=== PATIENT | male | born 1965 | race Caucasian/White ===

== ENCOUNTER 2017-01-13 17:45 | Inpatient (IN) | payer OTHER ==
[~2017-01-13] VITALS: Ht 182.9 cm; Wt 89.5 kg
--- NOTE | ~2017-01-13 | HP ---
PATIENT'S NAME: KENDELL LEMOS [facility] AGE: 51 Y [address] ROOM: [address] [address] LOCATION: [facility] [place] ADMIT DATE: 01/13/2017 History & Physical DISCHARGE DATE: FAMILY PHYSICIAN: Juliana Barker MD ATTENDING PHYSICIAN: VELMA AGUILAR DATE OF SERVICE: REFERRING PHYSICIAN: Juliana Barker MD in [place]. CHIEF COMPLAINT: Abdominal pain. REVIEW OF RECORD: Kendell is a pleasant 51-year-old gentleman sent out by Dr. Barker in [place] for admission to the hospital with the diagnosis of possibly developing small bowel obstruction and abdominal pain. The patient states that he has not been feeling well for couple of days. He has had bowel movements which are normal and he has had flatus. He felt his abdomen was getting more tender, and he presented to Dr. Barker. There was a report of white count elevated at 17,000. The CT scan suggested dilated small bowel with what would sound like there is a transition point in the pelvis, indicating a developing small bowel obstruction. He was admitted to the Hospitalist Service. An NG placed. This morning, the patient is afebrile. His laboratory data is normal. His white count is normal. He said he feels better. He is having lots of flatus and he had a bowel movement. He denies any nausea and the pain is much less. He has had no prior abdominal operations. He has a recent history of diverticulitis with abscess status post medical management. Apparently, he had a followup colonoscopy and diverticulosis that was normal per the patient report. The CT scan did not show any evidence of active diverticulitis or abscess. I reviewed with Dr. Cabrera, radiologist at [facility] and he concurs that he has a diffuse small bowel dilation pattern without any transition point and there is no evidence of decompressed small bowel distally. It looks like an ileus and we also noted to have a lot of stool throughout the colon without decompression. The patient says he has never had a small bowel obstruction before. He does not have any history of inguinal hernias. PAST MEDICAL HISTORY: Illnesses are: 1. Rheumatoid arthritis. 2. Chronic narcotic use. 3. Diabetes mellitus. 4. Hypertension. 5. History of diverticulitis. PATIENT'S NAME: KENDELL LEMOS [facility] AGE: 51 Y [address] ROOM: [place] [address] LOCATION: [facility] [place] ADMIT DATE: 01/13/2017 History & Physical DISCHARGE DATE: FAMILY PHYSICIAN: Juliana Barker MD ATTENDING PHYSICIAN: VELMA AGUILAR PAST SURGICAL HISTORY: Operations are colonoscopy. SOCIAL HISTORY: See HPI. MEDICATIONS: See HPI. REVIEW OF SYSTEMS: He denies any fevers. Denies any chills. Denies any change in his vision or hearing. He says he is thirsty. Denies any shortness of breath or chest pain. No dysuria or hematuria or pneumaturia. He denies any newly swollen joints, but he has changes of rheumatoid arthritis. PHYSICAL EXAMINATION: GENERAL: He is a pleasant, 51-year-old gentleman with an NG in place. HEENT: His sclerae are nonicteric. Mucous membranes are dry. NECK: Supple. There is no adenopathy. LUNGS: Clear. HEART: Normal sinus rhythm. ABDOMEN: Flat, minimally distended. Minimal pain with 4 quadrant palpation. No localization. No evidence of abdominal wall hernias or inguinal hernias. EXTREMITIES: He has 2/2 femoral and posterior tibial pulses. No peripheral edema. IMPRESSION: Abdominal pain with obstipation, likely small bowel ileus. The CT findings and clinical exam and history are not consistent with the small-bowel obstruction. I spoke with MAIRA Matos. Would recommend discontinuing the NG this afternoon if he continues to have flatus and bowel movements. I would like to get his bowels a little more regulated and decompressed. Start him on Colace due to his chronic narcotic use. I explained this to the patient, he agrees. We will follow up. Thank you very much for allowing me to participate in his care. BILLY MCCRAY MD WTS/modl PATIENT'S NAME: KENDELL LEMOS [facility] AGE: 51 Y [address] ROOM: [place] [address] LOCATION: [facility] [place] ADMIT DATE: 01/13/2017 History & Physical DISCHARGE DATE: FAMILY PHYSICIAN: Juliana Barker MD ATTENDING PHYSICIAN: VELMA AGUILAR /[id number] D: [id number] T: 610 HISTORY & PHYSICAL
--- NOTE | ~2017-01-13 | HP ---
PATIENT'S NAME: MASOUD LEMOS [facility] AGE: 51 Y [address] ROOM: [address] [address] LOCATION: [place] ADMIT DATE: 01/13/2017 History & Physical DISCHARGE DATE: FAMILY PHYSICIAN: PHYSICIAN, UNKNOWN ATTENDING PHYSICIAN: VELMA AGUILAR DATE OF SERVICE: CHIEF COMPLAINT: Abdominal pain. HISTORY OF PRESENT ILLNESS: A 51-year-old gentleman with a past medical history of rheumatoid arthritis, on chronic prednisone therapy, as well as diabetes, had a previous right-sided hernia repair in the past presented to the outside facility with abdominal pain, which was initially located in the epigastrium and now travelled to the rest of the abdomen, crampy in nature, 9/10 at its worst, comes in waves, progressive in nature, right now 6/10, associated with some nausea, but no vomiting. He did endorse having a feeling of being cold, but no chills, shakes, or fever reported. He had bowel movement this morning and have been passing some gas. On further questioning, he denied any chest pain, any shortness of breath, any palpitations, cough, sputum production, headache, trouble swallowing, any extremity pain, or swelling in the legs. REVIEW OF SYSTEMS: All other systems reviewed were negative except those mentioned in the HPI. ALLERGIES: NO KNOWN DRUG ALLERGIES. PAST MEDICAL HISTORY: Hypertension, essential, rheumatoid arthritis, hyperlipidemia, and type 2 diabetes. MEDICATIONS: Being reconciled right now. FAMILY HISTORY: Significant for pacemaker in father and type 2 diabetes in mother. SOCIAL HISTORY: Acute tobacco in the past, quit that many years ago. No alcohol or other drug abuse reported. PHYSICAL EXAMINATION: PATIENT'S NAME: MASOUD LEMOS [facility] AGE: 51 Y [address] ROOM: [address] [address] LOCATION: [place] ADMIT DATE: 01/13/2017 History & Physical DISCHARGE DATE: FAMILY PHYSICIAN: PHYSICIAN, UNKNOWN ATTENDING PHYSICIAN: VELMA AGUILAR VITAL SIGNS: Blood pressure 153/78, afebrile, 72, and 16. GENERAL: In mild acute distress due to abdominal pain. Alert and oriented x3. HEENT: Head: Atraumatic, normocephalic. Eyes: Nonicteric. No pallor. Oropharynx: Dry mucous membranes. CARDIOVASCULAR: S1, S2. No murmurs, gallops, or rubs. LUNGS: Clear to auscultation bilaterally. ABDOMEN: Soft. Tender in all quadrants. Some rigidity noted. Tenderness, worse in the right lower quadrant. Bowel sounds are present. EXTREMITIES: No clubbing, cyanosis, or edema. PSYCH: Normal affect, mood, and speech. NEUROLOGIC: Cranial nerves 2 through 12 intact. No motor or sensory deficit noted. MUSCULOSKELETAL: No muscle tenderness or joint swelling noted. SKIN: No blemishes or rashes noted. ENDOCRINE: No thyromegaly or myxedema noted. LABORATORY DATA: Lab work from outside facility showed a white count of 17. Rest of the BMP was unremarkable. Potassium was 3.5. CT scan of the abdomen was done at an outside facility, which did show a developing small bowel obstruction with a transition point in the pelvis. ASSESSMENT: 1. Developing small-bowel obstruction. 2. Type 2 diabetes. 3. Hypertension. 4. Rheumatoid arthritis. 5. Hyperlipidemia. PLAN: We are going to admit this patient to inpatient. NG suction with a low intermittent suction will be started. IV fluids, pain control, as well as nausea control will be provided. Given high white count and some rigidity noted in the abdomen, we will start him on ertapenem as well. Surgical consultation has already been obtained.. We will monitor his course in the hospital and defer the surgical plan to the Surgical Team. Hypertension, we will control with p.r.n. labetalol at this point as long as he is n.p.o. I will hold the leflunomide and prednisone at this point. If any signs of hypotension develops, we will give stress-dosed steroids. No chemical DVT prophylaxis, just the SCDs. The patient is full code. Rest of the recommendations will depend on his progress in the hospital. PATIENT'S NAME: MASOUD LEMOS [facility] AGE: 51 Y [address] ROOM: [address] [address] LOCATION: [place] ADMIT DATE: 01/13/2017 History & Physical DISCHARGE DATE: FAMILY PHYSICIAN: PHYSICIAN, UNKNOWN ATTENDING PHYSICIAN: VELMA AGUILAR MD LYNN SONG/modl /[id number] D: [id number] T: 213 HISTORY & PHYSICAL
--- NOTE | ~2017-01-13 | DS ---
PATIENT'S NAME: KENDELL LEMOS [facility] AGE: 51 Y [address] ROOM: [place] [address] LOCATION: [facility] [place] ADMIT DATE: 01/13/2017 Discharge Summary DISCHARGE DATE: 01/17/2017 FAMILY PHYSICIAN: Juliana Barker MD ATTENDING PHYSICIAN: Deirdre Palacios REASON FOR ADMISSION: Abdominal pain. PRINCIPAL DIAGNOSIS: Ileus versus partial small bowel obstruction. SECONDARY DIAGNOSES: 1. History of inguinal hernia repair. 2. Essential hypertension. 3. Tobacco dependence. 4. Type 2 diabetes. 5. Rheumatoid arthritis. 6. Chronic opioid dependence. PROCEDURES DURING STAY: None. CONSULTANTS DURING STAY: General Surgery. LABS AND PENDING TESTS AT THE TIME OF DISCHARGE: None. HOSPITAL COURSE: Kendell is a very pleasant 51-year-old gentleman sent for admission to the hospital with a possible developing small bowel obstruction and abdominal pain after he notes he had not been feeling well for a couple of days with associated increasing abdominal tenderness and elevated white count to 17. CT scan did suggest dilated small bowel with a possible transition point in the pelvis, though this was not definitive. The patient was admitted with supportive cares including IV fluids, pain control, NG tube for decompression, and a surgical consultation. Shortly after admission, the patient was passing flatus and did note a single bowel movement the morning following admission, however. There were no further bowel movements the remainder of the duration of his stay. He was placed on ertapenem initially given concern for leukocytosis which had rapidly resolved and no other evidence of infection, this was discontinued just prior to discharge. The patient remained afebrile without other concerns during stay. NG tube was removed two days prior to discharge, and the patient was advanced to initially clears and subsequently full liquid diet. As mentioned, no bowel movement was noted in three days prior to discharge; however, symptomatically, the patient had shown improvement and had been able to maintain adequate oral intake in the absence of IV fluids. Due to these reasons, a lengthy discussion was held with the patient regarding monitoring in the hospital with slow advancement of diet until bowel movements resume versus return home with the same plan. The PATIENT'S NAME: KENDELL LEMOS [facility] AGE: 51 Y [address] ROOM: [place] [id number] LOCATION: [facility] [place] ADMIT DATE: 01/13/2017 Discharge Summary DISCHARGE DATE: 01/17/2017 FAMILY PHYSICIAN: Juliana Barker MD ATTENDING PHYSICIAN: Deirdre Palacios patient did choose to return home at this time and will monitor his diet and advance slowly with followup with his PCP later this week. It is uncertain what the etiology of ileus versus partial small bowel obstruction is as he has had a hernia repair, but also the patient does note he had a colon perforation in the past with likely subsequent scarring. With this along with his chronic narcotic use, put him at risk for adhesions as well as ileus secondary to pain medications. We will send the patient with few tablets for pain control as needed, though this was sparingly needed at the time of discharge. The patient was started on Colace for constipation in the setting of narcotic use as well as given a suppository twice during stay without significant results later on in stay. PHYSICAL EXAMINATION AT DISCHARGE: VITAL SIGNS: Last vital signs on date of discharge; temp 97.4, pulse 71, respirations 18, blood pressure 122/81, saturating 99% on room air. GENERAL: No acute distress. Sitting up in chair. Ambulating independently around the room. CARDIOVASCULAR: Regular rate and rhythm. No murmurs, rubs, or gallops appreciated. LUNGS: Clear to auscultation bilaterally with normal effort on room air. ABDOMEN: Soft, nontender. Minimally distended. No masses appreciated. With normoactive bowel sounds. EXTREMITIES: Without edema. LABORATORY DATA: Most pertinent labs prior to discharge notable for a normal BMP and white count of 9. Procalcitonin also noted to be less than 0.05 during the stay. CONDITION: The patient was deemed to be in stable condition for discharge home. DISPOSITION: Discharge the patient, to include instructions to maintain a full liquid diet and only to advance quite slowly, this may be a several day process up to a week or two. We will have him follow up with his PCP within the next 3 to 5 days. TIME SPENT: Time spent on the date of discharge including direct patient care and coordination of discharge activities was 35 minutes. MD RENAN CHACON/anahi PATIENT'S NAME: KENDELL LEMOS [facility] AGE: 51 Y [address] ROOM: [place] [address] LOCATION: [facility] [place] ADMIT DATE: 01/13/2017 Discharge Summary DISCHARGE DATE: 01/17/2017 FAMILY PHYSICIAN: Juliana Barker MD ATTENDING PHYSICIAN: Deirdre Palacios /[id number] d: 01/18/17 0245 t: 01/18/17 0858, DISCHARGE SUMMARY
--- NOTE | 2017-01-13 20:23 | NUR ---
Patient admitted from [place] for small bowel obstruction. Stated he has felt "bad" the last 2-3 days with decreased appetite and increased back pain. Since this morning he started having constant cramping below the ribs that started moving down to his abdomen with increasing spasms. Nausea with no emesis. Had a normal bowel movement this morning. Chills. Patient has no allergies. Multiple medical history which includes DMII, diverticulitis, HTN, high cholesterol, migraines, chronic pain to multiple joints, osteoarthritis, and others. States he has had his pneumonia vaccine within the last 5 years, not sure on exact year. Pneumatics on
[2017-01-13] MEDS ORDERED: NORVASC10 MG PO (20:33)
[2017-01-13] MEDS ORDERED: ARAVA20 MG PO (20:33)
[2017-01-13] MEDS ORDERED: FLEXERIL10 MG PO (20:34)
[2017-01-13] MEDS ORDERED: LIPITOR40 MG PO (20:34)
[2017-01-13] MEDS ORDERED: VASOTEC20 MG PO (20:35)
[2017-01-13] MEDS ORDERED: PLAQUENIL200 MG PO (20:36)
[2017-01-13] MEDS ORDERED: HYSINGLA ER60 MG PO (20:38)
[2017-01-13] MEDS ORDERED: JARDIANCE10 MG PO (20:38)
[2017-01-13] MEDS ORDERED: GLUCOPHAGE1000 MG PO (20:39)
[2017-01-13] MEDS ORDERED: PREVACID30 M1 PO (20:39)
[2017-01-13] MEDS ORDERED: DELTASONE5 MG PO (20:40)
[2017-01-13] MEDS ORDERED: TRICOR145 MG PO (20:41)
[2017-01-13] MEDS ORDERED: ULTRAM50 MG PO (20:41)
[2017-01-13] MEDS ORDERED: ATARAX10 MG PO (20:45)
[2017-01-13] MEDS ORDERED: KOMBIGLYZE XR1 EAC1 PO (20:46)
--- NOTE | 2017-01-14 03:56 | NUR ---
Pt. arrived to floor at 1950 from ambulance for abdominal pain - small bowel obstruction. Pt. alert and oriented. VSS - hypertensive at times. RA. IV to R) hand - fluids started. NG inserted in R) nostril with low intermittant suction. Hold all PO meds. IV antibx. Pneumatics. KPad to stomach for cramping. Walking in the halls helps too. D/c Morphine as it did not help. Dilaudid now 0.2mg every 1 hour PRN. NPO with ice chips. 1 assist. Bed alarm is on. Zofran given around [address] Blanca to see Pt. in AM for consult and possible surgery. Cooperative and pleasant with cares.
[2017-01-14 06:03] LABS: BASOPHIL # 0.1 K/uL (0.0-0.2); BASOPHIL % 0.6 %; EOSINOPHIL # 0.4 K/uL (0.0-0.5); EOSINOPHIL % 4.2 %; HEMATOCRIT 39.6 % (37.0-53.0); IMMATURE GRANULOCYTE % 0.3 %; LYMPHOCYTE # 2.1 K/uL (0.8-4.0); LYMPHOCYTE % 22.9 %; MCH 28.1 pg (27.0-34.0); MCHC 32.8 gm/dL (32.0-36.5); MCV 85.5 fl (83.0-98.0); MONOCYTE # 0.9 K/uL (0.0-1.0); MONOCYTE % 9.8 %; MPV 10.8 fl (9.4-12.4); NEUTROPHIL # (ANC) 5.6 K/uL (1.4-9.0); NEUTROPHIL % 62.2 %; NRBC % 0 /100WBC (0-0.00); PLATELET COUNT 298 K/uL (150-450); RDW-CV 15.1 % (11.9-14.6)
[2017-01-14 06:04] LABS: RBC 4.63 M/uL (4.00-6.00)
[2017-01-14 06:21] LABS: ALBUMIN 2.9 gm/dL (3.5-5.0); ALK PHOS 86 IU/L (33-138); ALT 22 IU/L (12-78); ANION GAP 10.9 (10.0-19.0); AST 20 IU/L (10-40); BLOOD UREA NITROGEN 13 mg/dL (6-24); CALCIUM 8.7 mg/dL (8.5-10.5); CHLORIDE 110 mMol/L (96-110); CO2 26 mMol/L (22-32); CREATININE 0.9 mg/dL (0.6-1.3); POTASSIUM 3.9 mMol/L (3.7-5.1); SODIUM 143 mMol/L (135-145); TOTAL BILIRUBIN 0.4 mg/dL (0.0-1.5); TOTAL PROTEIN 6.4 g/dL (6.0-8.4)
--- NOTE | 2017-01-14 13:00 | NUR ---
Patient has been up in linder twice so far today. Dr. Blanca saw and left recommendations in the chart. Orders for dulcolax suppository and colace tablet given. Dilaudid given twice so far--last at 1146 with partial relief noted. Patient stated he is passing gas. Plan: Continue to monitor.
--- NOTE | 2017-01-14 16:13 | NUR ---
SPOKE TO PATIENT REGARDING CM AND OUR ROLE. PATIENT LIVES IN OWN HOME WITH S.O. HE IS PLANNING ON RETURNING HOME WITH HELP FROM S.O. PATIENT DOES NOT ANTCIPATE ANY DISCHARGE NEEDS AT THIS TIME.
--- NOTE | 2017-01-15 03:00 | NUR ---
Significant Event: Patient alert and oriented X3. Up with stand by assist, walked in halls x3. Passing "lots of gas" per patient. IV to R) hand with LR at 100ml. NG pulled from R) nare around 0130. No nausea and no worsening pain. DIlaudid last at 0125. SLeeping now. ICe chips ok, bowel sounds active. Voiding fine. From [place], suppository given during day yesterday. On colace. Accuchecks q6 hours. Follow up: Monitor pain/nausea
--- NOTE | 2017-01-15 16:35 | NUR ---
Significant event: Up ambulating in linder, gait steady. Shower done this am. [place] 1 tab twice for abdominal pain. Has tolerated clear liquids, report he does not have much of an appetite but denies nausea. Accuchecks are now AC,HS. 1100 am accucheck 127. Had 2 small, hard BM's.
--- NOTE | 2017-01-15 17:00 | NUR ---
Patient requested information on Diabestes stated he was diagnosed a couple of years ago and they just told him to monitor blood glucose and sugar intake. Gave the patient multiple [employer] teaching sheets on diet and diabetes. Also gave him a Diabetes book.
--- NOTE | 2017-01-16 04:20 | NUR ---
SIGNIFICANT EVENT: Alert & oriented. Independent to SBA. Hypertensive at times - 131 to 153 over 78 to 84, other VSS on RA. [place] x3, last at 314. ACHS accuchecks - no coverage for HS BG of 132. Clear liquids. PIV to R) wrist infusing LR at 100. Pleasant and cooperative with cares.
--- NOTE | 2017-01-16 10:42 | NUR ---
Pt alert and oriented x3. Ambulates in halls. [place] given at 0830 for abdominal discomfort. Pt stated relief. Pt showered self. No other needs voiced.
--- NOTE | 2017-01-17 02:08 | NUR ---
SIGNIFICANT EVENT: Pt alert & oriented. VSS on RA. SBA to independent. "Fall" prior to admit pertained to him missing the step on his tractor which caused a minor scrape to his mendoza. Gait is steady and no noted weakness. [place] x3 this shift - last at 0102. Advance to full liquid diet for breakfast - denies nausea, had 100% of dinner in (23 oz = 690 mL). Pleasant and cooperative with cares.
[2017-01-17 05:07] LABS: ANION GAP 8.4 (10.0-19.0); BLOOD UREA NITROGEN 6 mg/dL (6-24); CALCIUM 9.1 mg/dL (8.5-10.5); CHLORIDE 109 mMol/L (96-110); CO2 27 mMol/L (22-32); CREATININE 0.9 mg/dL (0.6-1.3); POTASSIUM 3.4 mMol/L (3.7-5.1); SODIUM 141 mMol/L (135-145)
[2017-01-17] MEDS ORDERED: COLACE100 MG PO (13:58)
[2017-01-17] MEDS ORDERED: NORCO 5-325 TA1 EACH PO (14:06)
--- NOTE | 2017-01-17 16:10 | NUR ---
Significant Event: Patient up ad justina in room. States is passing gas but has not had a BM today. Dr. Mccullough in and said patient could be dismissed to home. Dismissal papers processed and reviewed with patient. Also sent copy of the full and clear liquid menus home with patient as a guideline until patient able to advance diet as per discharge orders. Patient verbalized understanding of instructions, questions were answered and patient signed dismissal instructions. Patient's brother here. Patient ambulatory, was escorted by nurse to the front doors for dismissal. Brother was going to drive patient home.
== END 2017-01-17 16:05 | disposition disaster alternative care site (69) | DRG 389 ==
LOC: GMSU 19:45
PROVIDERS: Internal Medicine; ADMIT Internal Medicine
DX: K56.69 Other intestinal obstruction (principal); F11.20 Opioid dependence, uncomplicated; I10 Essential (primary) hypertension; E11.9 Type 2 diabetes mellitus without complications; E78.5 Hyperlipidemia, unspecified; M06.9 Rheumatoid arthritis, unspecified; Z86.39 Personal history of other endocrine, nutritional and metabolic disease; F17.210 Nicotine dependence, cigarettes, uncomplicated
CPT/HCPCS: J1170; J1335; J2270; J2405; J7050; J7120; J7512